=== PATIENT | male | born 1950 | race Caucasian/White ===

== ENCOUNTER 2021-09-19 10:31 | Emergency (ER) | payer MEDICARE, OTHER ==
[~2021-09-19] VITALS: Ht 170.2 cm; Wt 77.3 kg
[2021-09-19] MEDS ORDERED: GABA-1181 PO ×3 (10:55→13:27)
[2021-09-19] MEDS ORDERED: LISI-662 PO ×2 (10:55→13:27)
[2021-09-19] MEDS ORDERED: ASPI81TA87 PO ×2 (11:02→13:27)
[2021-09-19] MEDS ORDERED: CARB200C7 PO ×2 (11:02→13:27)
[2021-09-19] MEDS ORDERED: DIVA-111 PO ×2 (11:04→13:27)
[2021-09-19 12:15] LABS: BASOPHILS % (AUTO) 0.8 % (0.0-2.0); EOSINOPHILS % (AUTO) 2.7 % (1.0-6.0); HEMATOCRIT 35.7 % (41-53); HEMOGLOBIN 12.1 g/dL (13.5-17.5); LYMPHOCYTES # (AUTO) 1.7 K/uL (1.0-4.8); LYMPHOCYTES % (AUTO) 32.9 % (22.0-44.0); MEAN CORPUSCULAR HEMOGLOBIN 30.6 pg (26.0-34.0); MEAN CORPUSCULAR HGB CONC 33.7 G/dL (31.0-37.0); MEAN CORPUSCULAR VOLUME 91 fL (80-100); MONOCYTES # (AUTO) 0.6 K/uL (0.1-1.0); MONOCYTES % (AUTO) 11.9 % (2.0-9.0); NEUTROPHILS # (AUTO) 2.6 K/uL (1.8-7.7); NEUTROPHILS % (AUTO) 51.7 % (40.0-70.0); PLATELET COUNT (AUTO) 294 K/uL (150-450); RED BLOOD CELL COUNT(AUTO) 3.94 MIL/uL (4.50-5.90); RED CELL DISTRIBUTION WIDTH 13.7 % (11.5-14.5)
[2021-09-19] MEDS ORDERED: DIVALPROEX SODIUM 500 MG ER TABLET PO ONE (12:15)
[2021-09-19] MEDS ORDERED: CarBAMazepine 200 MG ER TABLET PO ONE (12:15)
[2021-09-19] MEDS ORDERED: LORazepam 2 MG/ML VIAL IVP ONE (12:15)
[2021-09-19 12:29] LABS: CALCIUM, TOTAL 8.9 mg/dL (8.8-10.5); CREATININE 1.96 mg/dL (0.60-1.30); POTASSIUM 4.1 mmol/L (3.5-5.1)
[2021-09-19 12:34] LABS: ALBUMIN 3.5 g/dL (3.4-5.0); BILIRUBIN,TOTAL 0.3 mg/dL (0.1-1.0); TOTAL PROTEIN, SERUM 7.6 g/dL (6.4-8.2)
[2021-09-19 13:40] VITALS: BP 166/92
== END 2021-09-19 13:51 | disposition home or self-care (01) ==
LOC: EMS 10:37
DX: G40.909 Epilepsy, unspecified, not intractable, without status epilepticus (principal); I10 Essential (primary) hypertension; F32.9 Major depressive disorder, single episode, unspecified; Z79.899 Other long term (current) drug therapy
CPT/HCPCS: 36415; 80053; 82962; 84484; 85025; 93005; 96374; 99284; J2060